=== PATIENT | male | born 1960 | race Hispanic/Latino ===

== ENCOUNTER 2018-02-27 08:49 | Observation (INO) | payer BC ==
--- NOTE | 2018-02-27 09:26 | ED PDOC ---
Arrival/HPI - General Chief Complaint: Dizziness/Lightheaded Time Seen by Provider: 02/27/18 09:05 Historian: Patient - History of Present Illness Narrative History of Present Illness (Text): 02/27/18 09:25 A 57 year old male presents to the emergency department for evaluation. Patient states "he has not been well" over the past few days. He reports an episode of difficulty speaking which lasted 2 seconds while on the phone with his . He states after this short episode resolved he has felt fine. Patient notes experiencing mild heart burn last night which occurred after eating and resolved after drinking water. Patient reports experiencing similar symptoms 10 years ago and diagnosed with hypertension. Patient was placed on medication for a short period of time but has been able to control through diet. He also notes 1 week ago having a tingling sensation to his left fingers, which has resolved. Patient is currently asymptomatic and denies any fever, chills, nausea, vomiting , diarrhea, abdominal pain, chest pain, shortness of breath, cough, headache, dizziness or any other complaints. Of note, patient notes working 7 days a week and states he does not sleep well. Time/Duration: Other (few days) Symptom Course: Unchanged Context: Home, Work Past Medical History - Provider Review Nursing Documentation Reviewed: Yes - Infectious Disease Hx of Infectious Diseases: None - Psychiatric Hx Substance Use: No Family/Social History - Physician Review Nursing Documentation Reviewed: Yes Family/Social History: No Known Family HX Smoking Status: Never Smoked Hx Alcohol Use: No Hx Substance Use: No Allergies/Home Meds Allergies/Adverse Reactions: Allergies Penicillins Allergy (Mild, Verified 02/27/18 08:59) RASH Home Medications: Home Meds Medication Instructions Recorded Confirmed No Known Home Med 02/27/18 02/27/18 Review of Systems - Review of Systems Constitutional: Fatigue, Other ("not feeling well"). absent: Fevers, Night Sweats Eyes: absent: Vision Changes ENT: absent: Hearing Changes, Sore Throat, Rhinorrhea Respiratory: absent: SOB, Cough, Sputum Cardiovascular: Other ("heartburn"). absent: Chest Pain, Calf Pain, FONG Gastrointestinal: absent: Abdominal Pain, Diarrhea, Nausea, Vomiting Genitourinary Male: absent: Dysuria Musculoskeletal: absent: Back Pain, Neck Pain Skin: absent: Rash Neurological: absent: Headache, Dizziness Endocrine: absent: Diaphoresis, Polyuria Hemo/Lymphatic: absent: Easy Bleeding Psychiatric: absent: Depression, Suicidal Ideation Physical Exam - Physical Exam Narrative Physical Exam (Text): Head: Atraumatic. Normocephalic. Eyes: PERRL. EOMI. Conjunctivae are not pale. ENT: Mucous membranes are moist and intact. Oropharynx is clear and symmetric. Neck: Supple. Full ROM. No JVD. No lymphadenopathy. Cardiovascular: Regular rate. Regular rhythm. No murmurs, rubs, or gallops. Distal pulses are 2+ and symmetric. Radial pulses equal in both upper extremities. BP equal in both upper extremities. Pulmonary/Chest: No evidence of respiratory distress. Clear to auscultation bilaterally. No wheezing, rales or rhonchi. Abdominal: Soft and non-distended. There is no tenderness. No rebound, guarding, or rigidity. No organomegaly. Good bowel sounds. No pulsatile masses. Back: No CVA tenderness. Extremities: No edema. No cyanosis. No clubbing. Full range of motion in all extremities. No calf tenderness. Distal pulses intact. Skin: Skin is warm and dry. No petechiae. No purpura. Neurological: Alert, awake, and oriented. No facial droop. No slurred speech. No aphasia. No apraxia. No pronator drift. Reflexes intact. Psychiatric: Good eye contact. Normal interaction, affect, and behavior. Vital Signs Reviewed: Yes Vital Signs Temp Pulse Resp BP Pulse Ox 02/27/18 11:02 98.0 F 78 16 127/78 99 02/27/18 10:49 82 16 135/94 H 100 02/27/18 10:05 78 18 132/88 98 02/27/18 09:40 83 160/108 H 02/27/18 09:31 160/108 H 02/27/18 09:04 97.2 F L 83 18 151/136 H 100 Temperature: Afebrile Blood Pressure: Hypertensive Pulse: Regular Respiratory Rate: Normal Appearance: Positive for: Well-Appearing, Non-Toxic, Comfortable Pain Distress: None Mental Status: Positive for: Alert and Oriented X 3 Finger Stick Blood Glucose: 96 Medical Decision Making ED Course and Treatment: 02/27/18 09:24 Impression: A 57 year old male presents for evaluation. Plan is to obtain head CT, labs, blood pressure control and give Aspirin. Differential Diagnosis included but are not limited to: TIA vs. [place] vs. CAD vs. Symptomatic hypertension Plan: -- Head CT -- Chest xray -- EKG -- Labs -- Urinalysis -- Aspirin and Clonidine -- Reassess and disposition Progress Notes: Report Date : 02/27/2018 09:55:01 PROCEDURE: CHEST RADIOGRAPH, 1 VIEW Dictator : Ba Buck MD IMPRESSION: No active disease. Report Date : 02/27/2018 10:12:31 PROCEDURE: CT HEAD WITHOUT CONTRAST. Dictator : Fahad Arizmendi MD IMPRESSION: No acute findings Patient reports "not feeling well" over the past 2-3 days. He reports "episdoes" where he has difficulty speaking, although none today, but will intermittently feel weak and lightheaded. He denies headache or shortness of breath. States he has been feeling more fatigued over past 2-3 days. Currently afebrile. Reports "heartburn" described as intermittent substernal chest discomfort that occurs intermittently, not necessarily with exertion. DENIES NECK PAIN OR BACK PAIN. Clonidine given with improvement in BP. He continues to have "funny feeling in head", although denies pain or visual symptoms. ASA ordered. He denies family history of CAD. Nonsmoker. Will admit for serial neuro exams, monitoring. Plan to admit to on-call service, consult cardiology/neurology. Patient informed of treatment plan, agreeable to admission for monitoring. 02/27/18 10:45 Case discussed with cobol application developer physician Dr. Sandhu, who accepts admission to his service. Reassessment Condition: Re-examined - Lab Interpretations Lab Results: 02/27/18 09:19 02/27/18 09:19 Lab Results 02/27/18 10:15: Urine Color Yellow, Urine Appearance Clear, Urine pH 6.0, Ur Specific Dale <= 1.005, Urine Protein Negative, Urine Glucose (UA) Negative, Urine Ketones Negative, Urine Blood Negative, Urine Nitrate Negative, Urine Bilirubin Negative, Urine Urobilinogen 0.2, Ur Leukocyte Esterase Negative 02/27/18 09:20: Prostate Specific Ag 1.0, TSH 3rd Generation 1.90 02/27/18 09:20: Hemoglobin A1c 5.1 02/27/18 09:19: PT 11.9, INR 1.03, APTT 29.3 02/27/18 09:19: Sodium 140, Potassium 4.5, Chloride 105, Carbon Dioxide 25, Anion Gap 14, BUN 17, Creatinine 1.0, Est GFR ( Amer) > 60, Est GFR (Non- Af Amer) > 60, Random Glucose 100, Calcium 9.3, Total Bilirubin 0.5, AST 27, ALT 47, Alkaline Phosphatase 82, Lactate Dehydrogenase 394, Total Creatine Kinase 71, Troponin I < 0.01, NT-Pro-B Natriuret Pep 35.2, Total Protein 7.6, Albumin 4.6, Globulin 3.0, Albumin/Globulin Ratio 1.6, Triglycerides 631 H, Cholesterol 233 H, LDL Cholesterol Direct 93, HDL Cholesterol 33 02/27/18 09:19: WBC 4.6, RBC 4.86, Hgb 14.5, Hct 40.8 L, MCV 84.0, MCH 29.8, MCHC 35.5, RDW 13.3, Plt Count 204, MPV 9.7, Gran % 57.0, Lymph % (Auto) 34.7, [place] % (Auto) 6.8 H, Eos % (Auto) 1.3 L, Baso % (Auto) 0.2, Gran # 2.61, Lymph # (Auto) 1.6, [place] # (Auto) 0.3, Eos # (Auto) 0.1, Baso # (Auto) 0.01 02/27/18 09:18: POC Glucose (mg/dL) 96 I have reviewed the lab results: Yes - RAD Interpretation Radiology Orders: 02/27/18 09:25 HEAD W/O CONTRAST [CT] Stat 02/27/18 09:26 CHEST ONE VIEW [RAD] Stat - EKG Interpretation EKG Interpretation (Text): EKG at 0903, normal sinus rhythm rate of 87, no acute st elevations Interpreted by ED Physician: Yes Type: 12 lead EKG - Medication Orders Current Medication Orders: Aspirin (Ecotrin) 325 mg PO DAILY [facility] Atorvastatin Calcium (Lipitor) 80 mg PO DIN [facility] Last Admin: 02/27/18 17:51 Dose: 80 mg Clonidine HCl (Catapres) 0.1 mg PO Q6H PRN PRN Reason: Systolic Blood Pressure Losartan Potassium (Cozaar) 50 mg PO DAILY [facility] Last Admin: 02/27/18 17:50 Dose: 50 mg MAR Pulse and Blood Pressure Document 02/27/18 17:50 YD (Rec: 02/27/18 17:51 YD [facility] [place]-[id number]) Blood Pressure Blood Pressure (100/60-150/90 mm Hg) 128/82 Pantoprazole Sodium (Protonix Inj) 40 mg IVP DAILY [facility] Discontinued Medications Aspirin (Aspirin Chewable) 81 mg PO STAT STA Stop: 02/27/18 09:34 Last Admin: 02/27/18 09:40 Dose: 81 mg Clonidine HCl (Catapres) 0.1 mg PO ONCE STA Stop: 02/27/18 09:34 Last Admin: 02/27/18 09:40 Dose: 0.1 mg MAR Pulse and Blood Pressure Document 02/27/18 09:40 [email or web address] (Rec: 02/27/18 09:40 [email or web address] [id number]) Pulse Pulse Rate (60-90 beats/min) 83 Blood Pressure Blood Pressure (100/60-150/90 mm Hg) 160/108 Losartan Potassium (Cozaar) 100 mg PO DAILY [facility] - Scribe Statement The provider has reviewed the documentation as recorded by the Scribe Tisha Benítez Provider Scribe Attestation: All medical record entries made by the Scribe were at my direction and personally dictated by me. I have reviewed the chart and agree that the record accurately reflects my personal performance of the history, physical exam, medical decision making, and the department course for this patient. I have also personally directed, reviewed, and agree with the discharge instructions and disposition. Disposition/Present on Arrival - Present on Arrival Any Indicators Present on Arrival: No History of DVT/PE: No History of Uncontrolled Diabetes: No Urinary Catheter: No History of Decub. Ulcer: No History Surgical Site Infection Following: None - Disposition Have Diagnosis and Disposition been Completed?: Yes Diagnosis: Chest pain, Speech disturbance, Hypertension Disposition: HOSPITALIZED Disposition Time: 11:25 Patient Plan: Admission, Telemetry Condition: SERIOUS
[2018-02-27 09:37] LABS: BASO # 0.01 K/mm3 (0.0-2.0); BASO % 0.2 % (0.0-3.0); EOS # 0.1 (0.0-0.7); EOS % 1.3 % (1.5-5.0); GRAN # 2.61 (1.4-6.5); HEMOGLOBIN 14.5 g/dL (14.0-18.0); LYMPH # 1.6 (1.2-3.4); LYMPH % 34.7 % (22.0-35.0); MEAN CORPUSCULAR HEMOGLOBIN 29.8 pg (25.0-35.0); MEAN CORPUSCULAR HGB CONC 35.5 g/dl (31.0-37.0); MEAN PLATELET VOLUME 9.7 fl (7.0-11.0); MONO # 0.3 (0.1-0.6); MONO % 6.8 % (1.0-6.0); RBC 4.86 10^6/uL (3.5-6.1); RED CELL DISTRIBUTION WIDTH 13.3 % (11.5-14.5); WHITE BLOOD COUNT 4.6 10^3/ul (4.5-11.0)
[2018-02-27 09:48] LABS: ALB/GLOB RATIO 1.6 (1.1-1.8); ALBUMIN 4.6 g/dL (3.0-4.8); ALT/SGPT 47 U/L (7-56); AST/SGOT 27 U/L (17-59); BLOOD UREA NITROGEN 17 mg/dL (7-21); CALCIUM 9.3 mg/dL (8.4-10.5); GFR AFRICAN-AMERICAN > 60; GFR NON-AFRICAN AMERICAN > 60
[2018-02-27 09:52] LABS: INR 1.03 (0.93-1.08); PARTIAL THROMBOPLASTIN TIME 29.3 Seconds (25.1-36.5); PROTHROMBIN TIME 11.9 SECONDS (9.4-12.5)
--- NOTE | 2018-02-27 09:56 | RAD ---
PROCEDURE: CHEST RADIOGRAPH, 1 VIEW HISTORY: chest pain COMPARISON: None available. FINDINGS: LUNGS: Clear. PLEURA: No pneumothorax or pleural fluid seen. CARDIOVASCULAR: No radiographic findings to suggest acute or significant cardiovascular disease. OSSEOUS STRUCTURES: No significant abnormalities. VISUALIZED UPPER ABDOMEN: Normal. OTHER FINDINGS: None. IMPRESSION: No active disease.
[2018-02-27 10:00] LABS: B-TYPE NATRIURETIC PEPTIDE 35.2 pg/mL (0-450); TROPONIN I < 0.01 ng/mL
--- NOTE | 2018-02-27 10:14 | CT ---
PROCEDURE: CT HEAD WITHOUT CONTRAST. HISTORY: episode of difficulty speaking COMPARISON: None available. TECHNIQUE: Axial computed tomography images were obtained through the head/brain without intravenous contrast. Radiation dose: Total exam DLP = 1048 mGy-cm. This CT exam was performed using one or more of the following dose reduction techniques: Automated exposure control, adjustment of the mA and/or kV according to patient size, and/or use of iterative reconstruction technique. FINDINGS: HEMORRHAGE: No intracranial hemorrhage. BRAIN: No mass effect or edema. No atrophy or chronic microvascular ischemic changes. VENTRICLES: Unremarkable. No hydrocephalus. CALVARIUM: Unremarkable. PARANASAL SINUSES: Unremarkable as visualized. No significant inflammatory changes. MASTOID AIR CELLS: Unremarkable as visualized. No inflammatory changes. OTHER FINDINGS: None. IMPRESSION: No acute findings
[2018-02-27 10:20] LABS: URINE BILIRUBIN NEGATIVE (NEGATIVE); URINE BLOOD NEGATIVE (NEGATIVE); URINE GLUCOSE (UA) NEGATIVE (NEGATIVE); URINE LEUKOCYTE ESTERASE NEGATIVE Leu/uL (NEGATIVE); URINE PROTEIN NEGATIVE mg/dL (<30 mg/dL); URINE UROBILINOGEN 0.2 E.U./dL (<1 E.U./dL)
[2018-02-27 10:21] LABS: URINE APPEARANCE CLEAR (CLEAR); URINE COLOR YELLOW (YELLOW)
--- NOTE | 2018-02-27 12:13 | CP.PCM.HP ---
<Raffi Esqueda - Last Filed: 02/27/18 12:06> History of Present Illness - History of Present Illness History of Present Illness: H&P for Dr. Sandhu's service - Dewayne Esqueda PGY2 HPI: Patient is a 57yo male with past medical history of hypertension, hyperlipidemia, GERD that presented c/o not feeling well over the last few days. He reported that 2 days prior he was speaking to his on the phone when he suddenly felt like he zoned out, had difficulty speaking and had a strange feeling come over him. He stated that prior to this episode he was in his usual state of health and had a similar experience over 10 years ago and was subsequently diagnosed with hypertension. He reported that he had been treated in the past for hypertension, hyperlipidemia and GERD however discontinue medication due to control with weight loss. Presently, he denies chest pain, palpitations, SOB, abdominal pain, nausea, vomiting, fever, chills, cough, focal weakness, numbness, tingling. 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 Family Hx: Father: CAD/CABG; Mother: alzheimers PMD: None Present on Admission - Present on Admission Any Indicators Present on Admission: No Past Patient History - Infectious Disease Hx of Infectious Diseases: None - Past Social History Smoking Status: Never Smoked - PSYCHIATRIC Hx Substance Use: No - SURGICAL HISTORY Hx Surgeries: No Meds Allergies/Adverse Reactions: Allergies Allergy/AdvReac Type Severity Reaction Status Date / Time Penicillins Allergy Mild RASH Verified 02/27/18 08:59 Physical Exam - Constitutional Appears: No Acute Distress - Head Exam Head Exam: ATRAUMATIC, NORMAL INSPECTION, NORMOCEPHALIC - Eye Exam Eye Exam: EOMI, PERRL - ENT Exam ENT Exam: Mucous Membranes Moist - Respiratory Exam Respiratory Exam: Clear to Auscultation Bilateral. absent: Rales, Rhonchi, Wheezes - Cardiovascular Exam Cardiovascular Exam: RRR, +S1, +S2. absent: Gallop, JVD, Rubs - GI/Abdominal Exam GI & Abdominal Exam: Soft. absent: Distended, Firm, Guarding, Rebound, Tenderness - Extremities Exam Extremities exam: Positive for: normal inspection. Negative for: pedal edema - Neurological Exam Neurological exam: Alert, CN II-XII Intact, Oriented x3 - Psychiatric Exam Psychiatric exam: Normal Affect, Normal Mood - Skin Skin Exam: Dry, Intact, Normal Color, Warm Results - Vital Signs Recent Vital Signs: Last Vital Signs Temp 98.0 F 02/27/18 11:02 Pulse 78 02/27/18 11:02 Resp 16 02/27/18 11:02 BP 127/78 02/27/18 11:02 Pulse Ox 99 02/27/18 11:02 - Labs Result Diagrams: 02/27/18 09:19 02/27/18 09:19 Assessment & Plan - Assessment and Plan (Free Text) Plan: 57yo male with history of HTN, HLD, GERD presents with complaint of feeling ill and having difficulty speaking 2 days prior. 1. Hypertensive urgency -Given clonodine in the ED -CT Head revealed no acute intracranial abnormalities -CXR revealed no active disease -EKG reviewed; NSR with no acute ST-T wave changes -Echo pending -Lipid panel, TSH, A1C, VitD, PSA pending -Brain MRI pending -MRA neck pending -Carotid duplex pending -Urine drug screen pending -Lyme titers pending -Cardiology consulted - Dr. Castañeda -Neurology consulted - Dr. Yanes -Started on Cozaar 50mg po daily -ASA 325mg po daily -Clonodine 0.1 q6h PRN with parameters 2. Hyperlipidemia -Lipitor 80mg po Daily -Lipid panel pending 3. GERD -Protonix 40mg po daily 4. DVT prophylaxis -SCD's Patient seen and case discussed/reviewed with attending, Dr. Sandhu <Luca Sandhu - Last Filed: 03/15/18 08:15> Results - Vital Signs Recent Vital Signs: Last Vital Signs Temp 98.0 F 02/28/18 12:00 Pulse 68 02/28/18 14:00 Resp 19 02/28/18 12:00 BP 129/87 02/28/18 12:00 Pulse Ox 96 02/28/18 12:00 - Labs Result Diagrams: 02/28/18 07:00 02/28/18 07:00 Attending/Attestation - Attestation I have personally seen and examined this patient.: Yes I have fully participated in the care of the patient.: Yes I have reviewed all pertinent clinical information: Yes Notes (Text): Please see/read my dictated notes.
[2018-02-27 12:26] LABS: HDL CHOLESTEROL 33 mg/dL (29-60)
[2018-02-27 12:36] LABS: LDL CHOLESTEROL 93 mg/dL (0-129)
[2018-02-27] MEDS ORDERED: Gadodiamide 287 MG/ML VIAL (20ML) IV ONE (13:34)
--- NOTE | 2018-02-27 14:55 | MRI ---
PROCEDURE: MR Angiography of the neck without contrast HISTORY: syncope COMPARISON: None available. TECHNIQUE: 3D [id number] angiography of the neck was performed. Rotating maximum intensity projection images of the cervical carotid and vertebral arteries were generated. The origins of the common carotid arteries were not visualized, which is a limitation inherent to the non-contrast time of flight technique. FINDINGS: RIGHT CAROTID ARTERIES: Common Carotid Artery: Normal. Carotid Bifurcation: Normal. Internal Carotid Artery:Normal. External Carotid Artery (proximal branches): Normal. LEFT CAROTID ARTERIES: Common Carotid Artery: Normal. Carotid Bifurcation: Normal. Internal Carotid Artery:Normal. External Carotid Artery (proximal branches): Normal. VERTEBRAL ARTERIES: Right Vertebral Artery: Normal. Left Vertebral Artery: Normal. OTHER FINDINGS: None. IMPRESSION: Normal MR Angiography of the neck.
--- NOTE | 2018-02-27 15:07 | MRI ---
PROCEDURE: MRI BRAIN WITH AND WITHOUT CONTRAST HISTORY: syncope COMPARISON: Head CT without contrast 02/27/2018. TECHNIQUE: Multiplanar, multisequence MR images of the brain were obtained with and without intravenous contrast enhancement. FINDINGS: HEMORRHAGE: None DWI: No evidence of an acute or early subacute infarction. BRAIN PARENCHYMA: Intrinsic signal throughout the dunaway and white matter structures above below the tentorium includes appears within normal limits including the brainstem. There is no mass effect, parenchymal edema or loss of the corticomedullary differentiation. Midline brain anatomy appears within normal limits including the corpus callosum, brainstem and craniocervical junction. There is no suspicious extra-axial fluid collection identified. ENHANCEMENT: No abnormal intracranial enhancement. VENTRICLES: Unremarkable. No hydrocephalus. CRANIUM: Unremarkable. ORBITS: Grossly unremarkable. PARANASAL SINUSES/MASTOIDS: Clear VASCULAR SYSTEM: Skull base flow voids intact. OTHER FINDINGS: None . IMPRESSION: Unremarkable pre and post contrast enhanced MRI of the brain.
[2018-02-27 17:37] LABS: LYME IGG NEGATIVE (NEGATIVE)
[2018-02-27 17:39] LABS: LYME IGM NEGATIVE (NEGATIVE)
--- NOTE | 2018-02-27 18:52 | CARD ---
APPROVED REPORT EKG Measurement Heart [id number] <Conclusion> Normal sinus rhythm Left axis deviation Inferior infarct, age undetermined Abnormal ECG
--- NOTE | 2018-02-27 19:12 | CON ---
DATE: 02/27/2018 NEUROLOGY CONSULTATION CHIEF COMPLAINT: Transient zoning out as well as difficulty speaking. HISTORY OF PRESENT ILLNESS: This is a 57-year-old man with history of hypertension, hyperlipidemia and GERD, was not feeling well for the past few days, generalized weakness, suddenly felt zoned out, had difficulty speaking, had strange feeling coming over him who has came to the hospital, found to have an elevated systolic and diastolic blood pressures in terms of 160/108, which is brought down by clonidine and underwent MRI of the brain and neck MRI, which is unremarkable for anything acute. Currently no focal weakness on neuro exam and on his examination. PAST MEDICAL HISTORY: Hypertension, hyperlipidemia, GERD. REVIEW OF SYSTEMS: A 14-point review of systems is negative except as per the HPI. ALLERGIES: ALLERGIC TO PENICILLIN, GIVES SOME HIVES. SOCIAL HISTORY: Denies any tobacco use. Drinks two beers, however was formerly a heavy drinker. He is an electricians top helper. FAMILY HISTORY: Noncontributory. LABORATORY DATA: Sodium is 140, potassium 4.5, chloride 105, carbon dioxide 25, BUN of 17, creatinine 1. Random glucose of 100. A1c is 5.1. Elevated triglycerides is 631, elevated cholesterol 233 and LDL of 93. Low vitamin D level 12.8. PHYSICAL EXAMINATION: VITAL SIGNS: Temperature of 98, pulse rate of 78, blood pressure 127/78, respiratory rate 16, oxygen saturation 99% by room air. GENERAL: The patient is sitting up in bed, in no acute distress. HEENT: Atraumatic, normocephalic. PERRLA. Extraocular muscles intact. NECK: Supple. No JVD, no adenopathy noted. LUNGS: Clear to auscultation. No adventitious sounds. HEART: S1 and S2. Normal rate and rhythm. No murmurs, rubs or gallops. ABDOMEN: Soft, nontender, and nondistended. Bowel sounds are present. EXTREMITIES: No clubbing. No cyanosis. Peripheral pulses 2+ felt bilaterally. NEUROLOGIC: The patient is alert and oriented to person, place, month and year. Speech is fluent without any errors. Cranial nerves II through XII intact. Motor exam: Moves all extremities equally. No pronator drift seen. Sensory exam: Light touch, pinprick, proprioception, and vibration intact. DTRs are 2+ throughout. Coordination: [id number] intact. Gait is deferred for now. ASSESSMENT AND PLAN: This is a 57-year-old man with past medical history of hypertension, hyperlipidemia, gastroesophageal reflux disease, presented with complaints of feeling generalized weakness and zoning out, having difficulty speaking for the past a few days, found to have elevated diastolic and systolic blood pressures. MRI of the brain and neck MRI showed no intracranial abnormality. He has elevated cholesterol and triglycerides. At this time, his overall presentation is likely secondary to hypertensive emergency. At this time recommend; 1. Aspirin 81 mg. 2. Atorvastatin 40 mg p.o. daily. 3. Keep systolic blood pressures between 130s to 140s systolic and diastolic 70s to 80s. 4. Low salt diet and daily exercise and is stable from my standpoint, he could go home. Once again, thank you for this consult. Maurizio Yanes MD
--- NOTE | 2018-02-27 20:39 | US ---
PROCEDURE: Bilateral carotid artery duplex ultrasound HISTORY: Carotid stenosis syncope PHYSICIAN(S): Reji Whitehead MD. TECHNIQUE: Duplex sonography and color-flow Doppler were used to evaluate the carotid bifurcations and limited segments of the vertebral arteries bilaterally. FINDINGS: There is mild smooth heterogeneous plaque noted at the carotid bifurcations bilaterally. The peak systolic velocity in the proximal right internal carotid artery is 93 cm/sec. This corresponds to a 20 to 39% proximal right ICA stenosis. Normal systolic velocities are noted in the proximal right external carotid artery. There is antegrade flow in the right vertebral artery. The peak systolic velocity in the proximal left internal carotid artery is 79 cm/sec. This corresponds to a 20 to 39% proximal left ICA stenosis. Normal systolic velocities are noted in the proximal left external carotid artery. There is antegrade flow in the left vertebral artery. IMPRESSION: 1. Bilateral 20-39% proximal ICA stenoses. 2. Antegrade flow in both vertebral arteries.
[2018-02-27] MEDS: Omega-3-Acid Ethyl Esters 1 GM Cap PO SCH (21:31)
[2018-02-27] MEDS: Enoxaparin 40 mg Syringe SC SCH (21:34)
--- NOTE | 2018-02-28 00:37 | HP ---
DATE OF EXAM: 02/27/2018 HISTORY OF PRESENT ILLNESS: The patient is a 57-year-old male, came to the emergency room at [facility] with chief complaints and HPI as follows. The patient complained of dizziness, lightheadedness, also complained of some difficulty speaking for about a few seconds a couple of days ago. The patient overall stated that he has not been feeling well for 2 days, also describes like a balloon like feeling in the abdomen and chest, feeling like a heartburn versus chest pain. The patient also reports left hand and fingers tingling sensation in the last couple of days which has resolved at this time. The patient was seen in the [facility], was found to have an elevated blood pressure of systolic 150 to 160 and diastolic 108. CODE STATUS: Full code. LIVING WILL ADVANCE DIRECTIVE: None. ALLERGIES: NONE. 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 PAST MEDICAL AND SURGICAL HISTORY: History of hypertension diagnosed 15 years ago, but not taking any medication. The patient denies any surgical history. FAMILY HISTORY: Both parents had heart problems and father had a coronary artery bypass graft. The patient's mother had Alzheimer's dementia. The patient is , with 2 children without any health issues. The patient denies any health issues in his siblings. SOCIAL HISTORY: Positive for former heavy alcoholism, but now only occasional alcoholic. Denies any smoking history. Denies any communicable transmissible disease. PHYSICAL EXAMINATION: GENERAL: The patient is seen in stretcher #7 in the emergency room. The patient is seen lying in the bed. The patient is alert, awake, responsive, comfortable, in no distress. VITAL SIGNS: T-max 98.7; heart rate 78, 84, 89, 92; blood pressure ranging from 151/136 to 160/108, down to 134/84 after one dose of clonidine 0.1 mg and aspirin 81 mg p.o. .Patient is sitting up in the bed. HEENT: Head examination normocephalic, atraumatic. [place] conjunctivae. Anicteric sclerae. No oropharyngeal lesion. NECK: No rigidity. Questionable soft carotid bruit. CHEST: Kyphosis. LUNGS: Shows no rales, crackles or wheezing. CARDIOVASCULAR: S1, S2, regular rhythm. ABDOMEN: Soft. Slightly protuberant. Positive bowel sounds. No hepatosplenomegaly noted. No guarding. No rigidity. No rebound tenderness. GENITALIA: Male. RECTAL: Deferred. EXTREMITIES: Shows no pitting edema, no calf tenderness, no Homans' sign. NEUROLOGIC: The patient is awake, alert, oriented x3. Cranial nerves II-XII grossly intact. Motor strength is 5/5 in upper and lower extremities. Gait examination, not tested. There was no gross neuro deficits noted. DIAGNOSTIC DATA: The patient's diagnostic data was reviewed. CBC is within normal limit. CMP, cardiac enzymes are negative and lipid panel is pending. Thyroid panel is pending. Urinalysis is negative. EKG shows sinus rhythm with questionable right ventricular conduction delay versus incomplete right bundle-branch block. Chest x-ray was negative for any pathology. CT of the head was done in the emergency room which was negative for any acute findings. The results were reviewed. IMPRESSION: 1. Questionable and possible transient ischemic attack with symptoms of dizziness and dysarthria. 2. Questionable chest pain versus gastroesophageal reflux versus heartburn. 3. Left upper extremity, left hand and finger tingling sensation (resolved). 4. Uncontrolled questionable accelerated hypertension. 5. Uncontrolled systolic-diastolic hypertension. 6. Morbid obesity with elevated body mass index. 7. Questionable right ventricular conduction delay versus incomplete right bundle-branch block. 8. History of hypertension, not on any medications. 9. Family history of coronary artery disease and coronary artery bypass graft. 10. History of former alcohol dependence and alcohol use disorder. 11. Morbid obesity. PLAN: At this time, the patient will be admitted to telemetry. Neurology consultation and Cardiology consultation ordered. Repeat cardiac enzymes ordered. Lipid panel, thyroid panel, hemoglobin A1c, vitamin D ordered. Lyme titers ordered. RPR is ordered. Imaging studies including MRI and MRA of the brain, carotid Dopplers, echo with Doppler ordered. The patient will be having a repeat troponin and repeat EKG. At present, the patient was seen in the bed 7 in the emergency room. At present, the patient is awaiting for a telemetry bed. At present, the patient's further management will be dependent upon the patient's clinical condition, hemodynamic status and as per the patient response to therapeutic intervention, as per the patient's diagnostic test results and as per recommendation by Neurology and Cardiology. The patient was advised and explained about his need for hospitalization and diagnosis, which was recommended by the ER physician that the patient should be admitted to the hospital which was explained to the patient at length and all questions concerned answered. In addition, the patient was explained about the details of his admitting diagnosis, need for further diagnostic therapeutic interventions were explained to the patient at length, which he acknowledged understand and all questions answered to his satisfaction. Dictated and electronically signed, not read. Luca Sandhu MD
[2018-02-28 01:07] LABS: BARBITURATES, UR NEGATIVE (NEGATIVE); BENZODIAZEPINES, UR NEGATIVE (NEGATIVE); OPIATES, UR NEGATIVE (NEGATIVE); PHENCYCLIDINE, UR NEGATIVE (NEGATIVE)
--- NOTE | 2018-02-28 02:31 | CON ---
DATE: 02/27/2018 CARDIOLOGY CONSULT REASON FOR CONSULTATION: Uncontrolled hypertension as well as dizziness. HISTORY OF PRESENT ILLNESS: The patient is a 57-year-old male, who has history of hypertension, but has no medical follow up and has not seen a doctor for years and has not taken any medications. He was in [place] with [employer]. He did experience the day before yesterday, a jha feeling throughout his upper body with dizziness and weakness, which he had a similar episode of today. The patient reported that he had difficulty speaking that lasted for 2 seconds while on the phone with his . The patient also reported to the ER team mild heartburning sensation after eating. SOCIAL HISTORY: The patient is a nonsmoker. He is a drinker. , lives with his . He is chronically traveling for work-related issues. MEDICATIONS: Current medications: Clonidine 0.1 mg every 6 hours, Cozaar 50 mg once a day, aspirin 325 mg once a day, Lipitor 80 mg once a day, Protonix 40 mg intravenously once a day. REVIEW OF SYSTEMS: No nausea or vomiting. No fever or chills. No syncope or fall. PAST MEDICAL HISTORY: Insignificant except for hypertension. PHYSICAL EXAMINATION: GENERAL: The patient is a middle-aged male, who does not appear to be in acute distress. VITAL SIGNS: Initial blood pressure on admission was 151/136, heart rate 83, temperature 97.2, respirations 16. Most recent blood pressure is 127/78. HEENT: Normocephalic. NECK: No JVD. CHEST: Clear. HEART: S1 and S2 regular. ABDOMEN: Soft. EXTREMITIES: No edema or calf tenderness. LABORATORY DATA: SMA-7: Sodium 140, potassium 4.5, chloride 105, CO2 25, glucose 100. BUN 17, creatinine 1. Two sets of troponins are negative. ProBNP is within normal limit. Triglycerides 631, total cholesterol 133, LDL cholesterol and HDL cholesterol are within normal limit. Prostate specific antigen is within normal limit. TSH level is within normal limit. PT/INR and PTT are within normal limit. Hemoglobin and hematocrit 14.5 and 40.8, white count and platelet count are within normal limit. EKG revealed sinus rhythm at a rate of 87, possible old inferior infarct. Left axis deviation. Brain MRI, unremarkable pre and post-contrast enhanced MRI of the brain. Chest x-ray was unremarkable. Neck MRA: Normal MR angiography of the neck. ASSESSMENT: 1. Uncontrolled hypertension on admission. 2. Atypical chest pain, myocardial infarction is ruled out. 3. Abnormal electrocardiogram with questionable old inferior infarct and left axis deviation. 4. Hyperlipidemia. RECOMMENDATIONS: Continue clonidine 0.1 mg every 6 hours, Cozaar 50 mg once a day, aspirin 325 mg once a day, Lipitor 80 mg once a day, Protonix 40 mg intravenously once a day. Obtain an echocardiogram, D-dimer and urine for tox screen. Pillo Burr MD
[2018-02-28 07:10] VITALS: O2SAT 96
[2018-02-28 07:54] LABS: BASO # 0.01 K/mm3 (0.0-2.0); BASO % 0.2 % (0.0-3.0); EOS # 0.1 (0.0-0.7); EOS % 1.4 % (1.5-5.0); GRAN # 2.36 (1.4-6.5); GRAN % 47.1 % (50.0-68.0); HEMOGLOBIN 14.5 g/dL (14.0-18.0); LYMPH # 2.2 (1.2-3.4); LYMPH % 44.3 % (22.0-35.0); MEAN CELL VOLUME 84.5 fl (80.0-105.0); MEAN CORPUSCULAR HEMOGLOBIN 29.1 pg (25.0-35.0); MEAN CORPUSCULAR HGB CONC 34.4 g/dl (31.0-37.0); MEAN PLATELET VOLUME 9.7 fl (7.0-11.0); MONO # 0.4 (0.1-0.6); RBC 4.98 10^6/uL (3.5-6.1); RED CELL DISTRIBUTION WIDTH 13.5 % (11.5-14.5)
[2018-02-28 07:59] LABS: ALB/GLOB RATIO 1.5 (1.1-1.8); ALBUMIN 4.4 g/dL (3.0-4.8); ALT/SGPT 48 U/L (7-56); AST/SGOT 27 U/L (17-59); BLOOD UREA NITROGEN 16 mg/dL (7-21); CALCIUM 9.7 mg/dL (8.4-10.5); GFR AFRICAN-AMERICAN > 60; GFR NON-AFRICAN AMERICAN > 60
[2018-02-28] MEDS: Enoxaparin 40 mg Syringe SC SCH (09:40)
[2018-02-28] MEDS: Omega-3-Acid Ethyl Esters 1 GM Cap PO SCH (09:41)
[2018-02-28] MEDS ORDERED: Ergocalciferol 50,000 Intl Units Cap PO SCH (10:00)
[2018-02-28] MEDS ORDERED: Aspirin 325 mg EC Tablets PO SCH (10:00)
--- NOTE | 2018-02-28 10:15 | CARD ---
APPROVED REPORT EXAM: Two-dimensional and M-mode echocardiogram with Doppler and color Doppler. INDICATION 2D DIMENSIONS IVSd1.3 (0.7-1.1cm)LVDd4.3 (3.9-5.9cm) PWd1.3 (0.7-1.1cm)LVDs3.0 (2.5-4.0cm) FS (%) 29.8 %LVEF (%)57.1 (>50%) M-Mode DIMENSIONS Left Atrium (MM)4.50 (2.5-4.0cm)Aortic Root3.60 (2.2-3.7cm) Aortic Cusp Exc.2.20 (1.5-2.0cm) Aortic Valve AoV Peak Beypexox286.0cm/Pilar Peak GR.6mmHg Mitral Valve MV E Izvmzogp43.2cm/sMV A Tgizycrs98.7cm/sE/A ratio0.8 TDI Lateral E' Peak V8.68cm/sMedial E' Peak V5.56cm/sE/Lateral E'4.2 E/Medial E'6.5 Tricuspid Valve TR Peak Usjxpjpc368rv/sRAP [id number] Peak Gr.20mmHg [id number] LEFT VENTRICLE The left ventricle is normal size. There is borderline concentric left ventricular hypertrophy. The left ventricular function is normal. The left ventricular ejection fraction is within the normal range. There is normal LV segmental wall motion. Transmitral Doppler flow pattern is abnormal. No left ventricle thrombus noted on this study. RIGHT VENTRICLE The right ventricle is normal size. There is normal right ventricular wall thickness. The right ventricular systolic function is normal. ATRIA The left atrium size is normal. The right atrium size is normal. AORTIC VALVE The aortic valve is not well visualized. No aortic regurgitation is present. There is no aortic valvular stenosis. MITRAL VALVE The mitral valve is normal in structure. There is no mitral valve regurgitation noted. There is no mitral valve stenosis. GREAT VESSELS The aortic root is normal in size. PERICARDIAL EFFUSION There is no pericardial effusion. <Conclusion> The left ventricle is normal size. There is borderline concentric left ventricular hypertrophy. The left ventricular function is normal. The left ventricular ejection fraction is within the normal range. There is normal LV segmental wall motion. Transmitral Doppler flow pattern is abnormal.
[2018-02-28 12:06] VITALS: BP 129/87; RESP 19; TEMP 98
--- NOTE | 2018-02-28 13:46 | MRI ---
PROCEDURE: Magnetic Resonance Angiography Brain HISTORY: ??TIA COMPARISON: None available. TECHNIQUE: 3D time of flight MR angiography of the intracranial arteries was performed. Rotating maximum intensity projection images were generated. FINDINGS: INTERNAL CAROTID ARTERIES: Unremarkable. The skull base, petrous, cavernous and supraclinoid segments are bilaterally widely patient. ANTERIOR CEREBRAL ARTERIES: Unremarkable. A1 and A2 segments are widely patent. Smaller distal branches unremarkable, as visualized. MIDDLE CEREBRAL ARTERIES: Unremarkable. M1 and M2 segments are widely patent. Perisylvian branches grossly symmetric. POSTERIOR CIRCULATION: Basilar Artery: Unremarkable. Distal Vertebral Arteries: Unremarkable. Posterior Cerebral Arteries: Unremarkable. Posterior Inferior Cerebellar Arteries: Unremarkable. ANEURYSM/ VASCULAR MALFORMATIONS: None. OTHER FINDINGS: None. IMPRESSION: Unremarkable MR angiography of the brain.
--- NOTE | 2018-02-28 14:24 | PN ---
DATE: 02/28/2018 SUBJECTIVE: The patient denies any dizziness or speech difficulty. One question about the fact that he could not speak to his on the phone. He reiterated that by the time he recognized what she was talking about it has passed few seconds and it was lag of his response rather than difficulty articulating speech and according to him, the did not notice anything unusual on his speech. PHYSICAL EXAMINATION: VITAL SIGNS: Blood pressure 116/73, heart rate 72, temperature 98.4, and respirations 18. HEENT: Normocephalic. CHEST: Clear. HEART: Sounds are regular. ABDOMEN: Soft. EXTREMITIES: No edema. LABORATORIES: Today's hemoglobin, hematocrit, white count, and platelet count are within normal limit. Today's SMA-7 is entirely within normal limit. Chest x-ray was within normal limit. Urine drug screen is negative. D-dimer was within normal limit. Echocardiography study revealed borderline concentric LVH with normal systolic function and normal segmental wall motion. Brain MRI with and without contrast, unremarkable study. Carotid ultrasound bilateral 20-39% proximal internal carotid artery stenosis antegrade flow in both vertebral arteries. Neck MRA, normal study. ASSESSMENT: 1. Uncontrolled hypertension on admission. 2. A brief period of light headedness while at work. 3. Hyperlipidemia. CONDITIONS: Continue Lipitor at 80 mg once a day, aspirin 325 mg once a day, Cozaar 50 mg once a day, and subcutaneous Lovenox 40 mg daily. No further cardiac workup is indicated at this time. Pillo Burr MD
[2018-02-28 17:01] VITALS: PULSE 68
--- NOTE | 2018-02-28 17:49 | CARD ---
APPROVED REPORT EKG Measurement Heart [id number] <Conclusion> Normal sinus rhythm Left axis deviation Inferior infarct, age undetermined Abnormal ECG
--- NOTE | 2018-03-01 01:16 | DS ---
FINAL PROGRESS NOTE AND DISCHARGE SUMMARY HISTORY OF PRESENT ILLNESS: The patient is seen in room 273, bed 3. The patient is lying in the bed having breakfast. The patient is alert, awake, responsive. The patient denies any complaints which he reported at the time of admission. The patient's last 24-hour events and nurse's notes were reviewed. PHYSICAL EXAMINATION: GENERAL: The patient is seen lying in the bed. The patient is having breakfast. The patient is alert, awake, responsive. VITAL SIGNS: Telemetry monitoring shows sinus rhythm. The patient is afebrile. Blood pressure 120/87, 114/78, 130/84; respirations 18-20; O2 sat 98%, 97%, 100%. The patient is seen lying in the bed. HEENT: Head examination normocephalic, atraumatic. HEENT examination shows pink conjunctivae. Anicteric sclerae. No oropharyngeal lesion. No neck rigidity. CHEST: Kyphosis. LUNGS: Shows no rales, crackles or wheezing. CARDIOVASCULAR: S1, S2. Regular rhythm. ABDOMEN: Soft, protuberant. Positive bowel sound. GENITALIA: Male. RECTAL: Deferred. EXTREMITY: Shows no pitting edema, no calf tenderness, no Homans' sign. MUSCULOSKELETAL: Shows an elevated body mass index. NEUROLOGIC: The patient is alert, awake, oriented x3. Cranial nerves II through XII intact. Gait examination is not tested. VASCULAR: Palpable pulses. DIAGNOSTICS: The patient's CBC from 02/28/2018 was reviewed. Other diagnostic data from 02/28/2018 was reviewed. Chemistry is within normal limits. LFTs are within normal limit. Triglyceride is greater than 673. Cholesterol is elevated. Thyroid panel is negative. Lyme antibody titer, RPR is negative. MRI of the brain, MRA of the brain, MRA of the carotid, carotid ultrasound were negative for any pathology. Echo with Doppler was done shows normal ejection fraction with hypertensive cardiovascular disease. No significant abnormalities noted on the echocardiogram. The patient was seen by neurologist overnight. Their recommendations were noted. The patient was cleared by Neurology and Cardiology for discharge. FINAL IMPRESSION, PLAN AND DISCHARGE DIAGNOSES: 1. Questionable one episode of dysarthria, etiology undetermined. 2. Questionable dizziness, resolved. 3. Possible gastroesophageal reflux. 4. Status post uncontrolled hypertension versus hypertensive urgency. 5. Morbid obesity with elevated body mass index. 6. Hypertriglyceridemia with elevated triglyceride level of greater than 670. 7. Hyperlipidemia. 8. Hypovitaminosis D. 9. Hypertensive cardiovascular disease. 1. Questionable and possible transient ischemic attack with symptoms of dizziness and dysarthria. 2. Questionable chest pain versus gastroesophageal reflux versus heartburn. 3. Left upper extremity, left hand and finger tingling sensation (resolved). 4. Uncontrolled questionable accelerated hypertension. 5. Uncontrolled systolic-diastolic hypertension. 6. Morbid obesity with elevated body mass index. 7. Questionable right ventricular conduction delay versus incomplete right bundle-branch block. 8. History of hypertension, not on any medications. 9. Family history of coronary artery disease and coronary artery bypass graft. 10. History of former alcohol dependence and alcohol use disorder. 11. Morbid obesity. Plan at this time, the patient was cleared by Neurology and cardiology for discharge. The patient's discharge medications are as per the updated ambulatory orders and the discharge medications prescription. The patient's discharge medications are, 1. Cozaar 50 mg daily. 2. 2 g twice a day. 3. Lipitor 20 or 40 mg daily. 4. Protonix 40 mg daily. 6. Drisdol 50,000 units weekly. 7. Ecotrin 81 mg daily or 325 mg daily. 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 The patient was advised to release all records from this hospitalization to PMD, Cardiology and Neurology. The patient was advised strict diet and weight loss. The patient was advised and explained about the details of his diagnostic testing and recommendation by all the physician involved in the care of the patient in layman's language. All questions concerned answered to the patient's satisfaction. The patient was advised to comply with medication, diet, activity, weight loss, etc. and to take medications as per the discharge prescriptions. All of the above the patient acknowledged and understood. Time spent in the entire discharge process more than 45 minutes. Dictated and electronically signed, not read. Luca Sandhu MD JOHN
[2018-03-02 08:25] LABS: 23 KD (IGG) BAND Nonreactive
== END 2018-02-28 17:12 | disposition home or self-care (01) ==
LOC: ED 08:49 → INTOOBSV 10:50 → ERH 10:50 → 2RSO 14:23
PROVIDERS: ADMIT Internal Medicine; ATTEND Internal Medicine
DX: I16.1 Hypertensive emergency (principal); I11.9 Hypertensive heart disease without heart failure; R47.1 Dysarthria and anarthria; R42 Dizziness and giddiness; K21.9 Gastro-esophageal reflux disease without esophagitis; E66.01 Morbid (severe) obesity due to excess calories; E78.1 Pure hyperglyceridemia; E78.5 Hyperlipidemia, unspecified; E55.9 Vitamin D deficiency, unspecified; E78.00 Pure hypercholesterolemia, unspecified; Z79.82 Long term (current) use of aspirin; Z79.899 Other long term (current) drug therapy; Z82.0 Family history of epilepsy and other diseases of the nervous system; Z82.49 Family history of ischemic heart disease and other diseases of the circulatory system; Z68.25 Body mass index [BMI] 25.0-25.9, adult
CPT/HCPCS: 36415; 70450; 70544; 70547; 70553; 71045; 80053; 80061; 81003; 82306; 82550; 82948; 83036; 83615; 83880; 84153; 84443; 84484; 85025; 85378; 85610; 85730; 86592; 86617; 86618; 87801; 93005; 93306; 93880; 96372; 96374; 99285; A9579; C9113; G0378; G0480; J1650